=== PATIENT | male | born 1960 | race American Indian/Alaskan Native ===

== ENCOUNTER 2016-09-10 11:47 | Emergency (ER) | payer OTHER ==
[2016-09-10] MEDS ORDERED: NORCO 5-325 TA1 EACH PO (13:13)
--- NOTE | 2016-09-11 15:47 | EKG ---
[facility] [address] [facility] [place] [address] Signed Normal sinus rhythm Normal ECG No previous ECGs available Confirmed by ASPEN FELIX MD ([id number]) on 09/11/2016 3:46:47 PM Electronically Signed By: ASPEN FELIX MD 09/11/16 1547 PATIENT NAME: DIONICIO RICHARDSON Electrocardiogram DATE OF : 62 PHYSICIAN: ASPEN FELIX MD REPORT #: [id number] REPORT IS CONFIDENTIAL AND NOT TO BE RELEASED WITHOUT AUTHORIZATION
== END 2016-09-10 13:57 | disposition home or self-care (01) ==
LOC: ED 11:47
DX: S43.102A Unspecified dislocation of left acromioclavicular joint, initial encounter (principal); R07.81 Pleurodynia; W55.12XA Struck by horse, initial encounter
CPT/HCPCS: 36415; 71010; 73030; 80053; 85025; 93005; 93010; 96374; 96375; 99284; G0480; J1170; J2405; J7030

== ENCOUNTER 2016-11-04 08:16 | Emergency (ER) | payer OTHER ==
[~2016-11-04] VITALS: Ht 165.1 cm; Wt 72.6 kg
[~2016-11-04 08:16] MED LIST: NORCO 5-325 TA1 EACH PO
[2016-11-04] MEDS ORDERED: KETOROLAC TROME10 MG PO (11:00)
== END 2016-11-04 11:15 | disposition home or self-care (01) ==
LOC: ED 08:16
DX: M24.412 Recurrent dislocation, left shoulder (principal); M24.411 Recurrent dislocation, right shoulder; M25.552 Pain in left hip; G89.29 Other chronic pain; M10.9 Gout, unspecified; W19.XXXA Unspecified fall, initial encounter
CPT/HCPCS: 73030; 73502; 84550; 99283; J1885

== ENCOUNTER 2020-05-24 13:50 | Emergency (ER) | payer OTHER ==
[~2020-05-24] VITALS: Ht 165.1 cm; Wt 74.8 kg
[~2020-05-24 13:50] MED LIST changes: +KETOROLAC TROME10 MG PO
[2020-05-24] MEDS ORDERED: OMEPRAZOLE20 MG PO (16:02)
--- NOTE | 2020-05-24 19:09 | EKG ---
[facility] [address] [facility] [place], [place] [address] Signed Normal sinus rhythm Normal ECG No previous ECGs available Confirmed by ANGELIC THOMPSON DO ([id number]) on 05/24/2020 7:09:35 PM Electronically Signed By: ANGELIC THOPMSON DO 05/24/20 1909 PATIENT NAME: DIONICIO RICHARDSON Electrocardiogram DATE OF : 62 PHYSICIAN: ANGELIC THOMPSON DO REPORT #: [id number] REPORT IS CONFIDENTIAL AND NOT TO BE RELEASED WITHOUT AUTHORIZATION
== END 2020-05-24 16:22 | disposition home or self-care (01) ==
LOC: ED 13:50
DX: K29.20 Alcoholic gastritis without bleeding (principal); K20.90 Esophagitis, unspecified without bleeding; F17.200 Nicotine dependence, unspecified, uncomplicated
CPT/HCPCS: 71045; 80053; 83690; 83735; 84484; 85025; 93005; 93010; 99285-25

== ENCOUNTER 2020-05-29 09:14 | Emergency (ER) | payer OTHER ==
[~2020-05-29] VITALS: Ht 165.1 cm; Wt 74.8 kg
[~2020-05-29 09:14] MED LIST changes: +OMEPRAZOLE20 MG PO
--- OUTSIDE RECORDS SUMMARY | 2020-05-29 09:16 | XMS ---
PreManage Notification: DIONICIO RICHARDSON Security Technical Manager Events No recent Security Events currently on file CRITERIA MET - [facility] - 2 Visits in 30 Days CARE PROVIDERS There are no care providers on record at this time. Julian has no Care Guidelines for this patient. [facility]12 MO.) [facility] NOTE: Visits indicate total known visits. ED/C VISIT TRACKING (12 MO.) [facility] COMPLAINT: - FALL 05/24/2020 13:50 [facility] TYPE: Emergency COMPLAINT: - CHEST PAINS DIAGNOSES: - Alcoholic gastritis without bleeding - Nicotine dependence, unspecified, uncomplicated - Esophagitis, unspecified without bleeding - Chest pain, unspecified INPATIENT VISIT TRACKING (12 MO.) No inpatient visits to display in this time frame [id number]
[2020-05-29] MEDS ORDERED: ADULT ASPIRIN R81 MG PO (09:30)
[2020-05-29] MEDS ORDERED: HYDROCODON-ACE1 EA10 PO (10:55)
== END 2020-05-29 11:07 | disposition home or self-care (01) ==
LOC: ED 09:14
DX: S42.301A Unspecified fracture of shaft of humerus, right arm, initial encounter for closed fracture (principal); W10.9XXA Fall (on) (from) unspecified stairs and steps, initial encounter; F17.200 Nicotine dependence, unspecified, uncomplicated; Z79.899 Other long term (current) drug therapy; Z79.82 Long term (current) use of aspirin
CPT/HCPCS: 73060; 99283-25